=== PATIENT | male | born 1935 | race Caucasian/White ===

== ENCOUNTER 2017-07-15 16:58 | Observation (INO) | payer OTHER, MEDICARE, BC ==
[~2017-07-15] VITALS: Ht 172.7 cm; Wt 68.7 kg
[~2017-07-15 16:58] MED LIST: ASPI81CH PO; Calcium + Vita1 EACH PO; ESOM20 PO; FISH OIL 1,0001 EAC1 PO; LISI20 PO; NALT50 PO; THERAPEUTIC-M1 EAC3 PO
[2017-07-15 18:32] LABS: BASOPHILS ABSOLUTE AUTO 0.04 K/mm3 (0.00-0.23); BASOPHILS PERCENT AUTO 1 % (0-2); EOSINOPHILS ABSOLUTE AUTO 0.29 K/mm3 (0.00-0.68); EOSINOPHILS PERCENT AUTO 5 % (0-6); Hematocrit 35.3 % (37.0-53.0); Hemoglobin 12.2 g/dL (13.5-17.5); IMMATURE GRAN ABSOLUTE AUTO 0.03 K/mm3 (0.00-0.10); IMMATURE GRAN PERCENT AUTO 1 % (0-1); LYMPHOCYTES ABSOLUTE AUTO 1.65 K/mm3 (0.84-5.20); LYMPHOCYTES PERCENT AUTO 30 % (21-46); MONOCYTES PERCENT AUTO 5 % (4-13); Mean Corpuscular HGB 33.2 pg (26.0-34.0); Mean Corpuscular HGB Conc 34.6 g/dL (31.5-36.5); Mean Corpuscular Volume 96 fL (80-100); NEUTROPHILS ABSOLUTE AUTO 3.25 K/mm3 (1.96-9.15); NEUTROPHILS PERCENT AUTO 59 % (41-73); RDW Coefficient Variation 13.7 % (11.7-14.2); RDW Standard Deviation 48.7 fL (35.1-46.3); Red Blood Cell Count 3.68 M/mm3 (4.30-5.90); White Blood Cell Count 5.56 K/mm3 (4.00-11.30)
[2017-07-15 18:33] LABS: Mean Platelet Volume 9.7 fL (9.1-12.4); Platelet Count 108 K/mm3 (150-400)
[2017-07-15 18:47] LABS: Bun/Creatinine Ratio 21.6 (12.0-20.0); Calcium, Blood 8.5 mg/dL (8.5-10.1); Creatinine, Blood 1.25 mg/dL (0.60-1.20); Potassium, Blood 3.5 mmol/L (3.5-5.5)
[2017-07-15] MEDS ORDERED: Gaviscon Foamt1 EACH PO (20:24)
[2017-07-15] MEDS ORDERED: TORSEMIDE PO ×2 (20:30→20:31)
[2017-07-15] MEDS ORDERED: ACET500 PO (20:32)
[2017-07-15] MEDS ORDERED: DOCU100 PO (20:33)
[2017-07-16 04:53] LABS: Hematocrit 32.6 % (37.0-53.0); Hemoglobin 11.3 g/dL (13.5-17.5); Mean Corpuscular HGB 32.9 pg (26.0-34.0); Mean Corpuscular HGB Conc 34.7 g/dL (31.5-36.5); Mean Corpuscular Volume 95 fL (80-100); Mean Platelet Volume 9.4 fL (9.1-12.4); Platelet Count 112 K/mm3 (150-400); RDW Standard Deviation 48.5 fL (35.1-46.3); Red Blood Cell Count 3.43 M/mm3 (4.30-5.90)
[2017-07-16 05:20] LABS: Anion Gap 5 mmol/L (6-16); Blood Urea Nitrogen 28 mg/dL (8-24); Bun/Creatinine Ratio 24.6 (12.0-20.0); CO2, Blood 33 mmol/L (21-32); Chloride, Blood 101 mmol/L (98-108); Creatinine, Blood 1.14 mg/dL (0.60-1.20); Glomerular Filtration Rate >60 (60-); Glucose, Blood 110 mg/dL (70-99); Potassium, Blood 3.8 mmol/L (3.5-5.5); Sodium, Blood 139 mmol/L (136-145)
[2017-07-17 05:33] LABS: Anion Gap 5 mmol/L (6-16); Blood Urea Nitrogen 28 mg/dL (8-24); CO2, Blood 34 mmol/L (21-32); Calcium, Blood 8.3 mg/dL (8.5-10.1); Chloride, Blood 99 mmol/L (98-108); Creatinine, Blood 1.22 mg/dL (0.60-1.20); Glomerular Filtration Rate >60 (60-); Glucose, Blood 106 mg/dL (70-99); Potassium, Blood 3.8 mmol/L (3.5-5.5); Sodium, Blood 138 mmol/L (136-145)
[2017-07-17] MEDS ORDERED: LIDOCAINE1 EACH TOP (12:55)
[2017-07-17] MEDS ORDERED: OXYB5 PO (12:55)
[2017-07-17] MEDS ORDERED: GAVILAX17 GM PO (12:56)
[2017-07-17] MEDS ORDERED: TRAM50 PO (12:56)
== END 2017-07-17 17:02 | disposition home health service (06) ==
LOC: ER 16:58 → MEDS 16:59 → ENPENDDIS 07-17 10:00 → MEDS 07-17 17:02
PROVIDERS: Emergency Medicine; Internal Medicine
DX: S32.592A Other specified fracture of left pubis, initial encounter for closed fracture (principal); D69.6 Thrombocytopenia, unspecified; I25.10 Atherosclerotic heart disease of native coronary artery without angina pectoris; I13.0 Hypertensive heart and chronic kidney disease with heart failure and stage 1 through stage 4 chronic kidney disease, or unspecified chronic kidney disease; I50.32 Chronic diastolic (congestive) heart failure; N18.3 Chronic kidney disease, stage 3 (moderate); D63.1 Anemia in chronic kidney disease; G47.33 Obstructive sleep apnea (adult) (pediatric); M19.90 Unspecified osteoarthritis, unspecified site; G31.84 Mild cognitive impairment of uncertain or unknown etiology; M50.30 Other cervical disc degeneration, unspecified cervical region; M47.896 Other spondylosis, lumbar region; Z79.899 Other long term (current) drug therapy; Z95.5 Presence of coronary angioplasty implant and graft; Z88.8 Allergy status to other drugs, medicaments and biological substances; Z79.82 Long term (current) use of aspirin; Z95.1 Presence of aortocoronary bypass graft; Z99.89 Dependence on other enabling machines and devices; Y93.89 Activity, other specified; V03.90XA Pedestrian on foot injured in collision with car, pick-up truck or van, unspecified whether traffic or nontraffic accident, initial encounter
CPT/HCPCS: 36415; 51702; 72125; 73502; 80048; 85025; 85027; 94660; 94762; 96372; 96374; 96376; 97116; 97162; 97166; 97530; 97535; 99285; G0378; G8978; G8979; G8987; G8988; J1650; J3010

== ENCOUNTER → 2020-01-26 | Outpatient (CLI) | payer MEDICARE, BC ==
[~2020-01-26] MED LIST changes: +ACET500 PO; +Citroma296 ML PO; +DOCU100 PO; +GAVILAX17 GM PO; +Gaviscon Foamt1 EACH PO; +ISOMON20 PO; +LIDOCAINE1 EACH TOP; +METO25ER PO; +OXYB5 PO; +PANT40 PO; +POTCHL20ER PO; +PSYSENPA PO; +TAMS.4ER PO; +TORSE20 PO; +TORSEMIDE PO; +TRAM50 PO; +VITAMIN D31000 UNI1 PO
[2020-01-26 14:40] LABS: BASOPHILS ABSOLUTE AUTO 0.04 K/mm3 (0.00-0.23); BASOPHILS PERCENT AUTO 1 % (0-2); EOSINOPHILS ABSOLUTE AUTO 0.28 K/mm3 (0.00-0.68); EOSINOPHILS PERCENT AUTO 6 % (0-6); Hematocrit 35.2 % (37.0-53.0); Hemoglobin 11.9 g/dL (13.5-17.5); IMMATURE GRAN ABSOLUTE AUTO 0.02 K/mm3 (0.00-0.10); IMMATURE GRAN PERCENT AUTO 0 % (0-1); LYMPHOCYTES ABSOLUTE AUTO 1.43 K/mm3 (0.84-5.20); LYMPHOCYTES PERCENT AUTO 30 % (21-46); MONOCYTES ABSOLUTE AUTO 0.46 K/mm3 (0.16-1.47); MONOCYTES PERCENT AUTO 10 % (4-13); Mean Corpuscular HGB 31.9 pg (26.0-34.0); Mean Corpuscular HGB Conc 33.8 g/dL (31.5-36.5); Mean Corpuscular Volume 94 fL (80-100); NEUTROPHILS ABSOLUTE AUTO 2.59 K/mm3 (1.96-9.15); NEUTROPHILS PERCENT AUTO 54 % (41-73); Platelet Count 137 K/mm3 (150-400); RDW Coefficient Variation 15.2 % (11.7-14.2); Red Blood Cell Count 3.73 M/mm3 (4.30-5.90); White Blood Cell Count 4.82 K/mm3 (4.00-11.30)
[2020-01-26 14:55] LABS: Albumin, Blood 3.6 g/dL (3.4-5.0); Albumin/Globulin Ratio 0.9 (0.8-1.8); Bilirubin, Total 0.3 mg/dL (0.1-1.0); Bun/Creatinine Ratio 17.9 (12.0-20.0); Calcium, Blood 8.5 mg/dL (8.5-10.1); Creatinine, Blood 1.45 mg/dL (0.60-1.20); Globulin, Blood 3.9 g/dL (2.2-4.0); Potassium, Blood 3.8 mmol/L (3.5-5.5); Total Protein, Blood 7.5 g/dL (6.4-8.2); Troponin I 0.021 ng/mL (0.000-0.040)
== END | disposition home or self-care (01) ==
LOC: OLS 14:36 → LAB SHORT 14:36
PROVIDERS: Physician Assistant
DX: R07.9 Chest pain, unspecified (principal); R10.9 Unspecified abdominal pain
CPT/HCPCS: 80053; 84484; 85025

== ENCOUNTER 2020-01-30 12:32 | Emergency (ER) | payer MEDICARE, BC ==
[~2020-01-30] VITALS: Ht 172.7 cm; Wt 81.2 kg
[~2020-01-30 12:32] MED LIST changes: -Citroma296 ML PO; -ISOMON20 PO; -METO25ER PO; -PANT40 PO; -POTCHL20ER PO; -PSYSENPA PO; -TAMS.4ER PO; -TORSE20 PO; -VITAMIN D31000 UNI1 PO
[2020-01-30] MEDS ORDERED: Citroma296 ML PO (14:00)
[2020-01-30] MEDS ORDERED: PSYSENPA PO (14:00)
[2020-01-31] MEDS ORDERED: ISOMON20 PO (00:05)
[2020-01-31] MEDS ORDERED: OXYB5 PO (00:06)
[2020-01-31] MEDS ORDERED: POTCHL20ER PO (00:06)
[2020-01-31] MEDS ORDERED: METO25ER PO (00:06)
[2020-01-31] MEDS ORDERED: TAMS.4ER PO (00:07)
[2020-01-31] MEDS ORDERED: TORSE20 PO (00:08)
[2020-01-31] MEDS ORDERED: VITAMIN D31000 UNI1 PO (00:09)
== END 2020-01-30 15:35 | disposition home or self-care (01) ==
LOC: ER 12:32
DX: K59.00 Constipation, unspecified (principal); Z79.82 Long term (current) use of aspirin; Z79.899 Other long term (current) drug therapy
CPT/HCPCS: 74176; 96374; 96375; 99284-25; J2405; J3010

== ENCOUNTER 2020-01-30 20:03 | Inpatient (IN) | payer MEDICARE, BC ==
[~2020-01-30] VITALS: Ht 172.7 cm; Wt 77.3 kg
[~2020-01-30 20:03] MED LIST changes: +Citroma296 ML PO; +PSYSENPA PO
[2020-01-30 20:55] LABS: BASOPHILS ABSOLUTE AUTO 0.05 K/mm3 (0.00-0.23); BASOPHILS PERCENT AUTO 1 % (0-2); EOSINOPHILS ABSOLUTE AUTO 0.16 K/mm3 (0.00-0.68); EOSINOPHILS PERCENT AUTO 3 % (0-6); Hematocrit 33.6 % (37.0-53.0); Hemoglobin 10.8 g/dL (13.5-17.5); IMMATURE GRAN ABSOLUTE AUTO 0.05 K/mm3 (0.00-0.10); IMMATURE GRAN PERCENT AUTO 1 % (0-1); LYMPHOCYTES ABSOLUTE AUTO 1.55 K/mm3 (0.84-5.20); LYMPHOCYTES PERCENT AUTO 28 % (21-46); MONOCYTES ABSOLUTE AUTO 0.52 K/mm3 (0.16-1.47); MONOCYTES PERCENT AUTO 9 % (4-13); Mean Corpuscular HGB 31.1 pg (26.0-34.0); Mean Corpuscular HGB Conc 32.1 g/dL (31.5-36.5); Mean Corpuscular Volume 97 fL (80-100); Mean Platelet Volume 9.9 fL (9.1-12.4); NEUTROPHILS ABSOLUTE AUTO 3.22 K/mm3 (1.96-9.15); NEUTROPHILS PERCENT AUTO 58 % (41-73); Platelet Count 149 K/mm3 (150-400); RDW Coefficient Variation 15.4 % (11.7-14.2); RDW Standard Deviation 55.3 fL (35.1-46.3); Red Blood Cell Count 3.47 M/mm3 (4.30-5.90); White Blood Cell Count 5.55 K/mm3 (4.00-11.30)
[2020-01-30 21:13] LABS: Alanine Aminotransfer (ALT/SGP 23 U/L (12-78); Albumin, Blood 2.9 g/dL (3.4-5.0); Albumin/Globulin Ratio 0.7 (0.8-1.8); Alk Phos 56 U/L (50-136); Anion Gap 6 mmol/L (6-16); Aspartate Aminotrans (AST/SGOT 14 U/L (12-37); Bilirubin, Total 0.2 mg/dL (0.1-1.0); Blood Urea Nitrogen 33 mg/dL (8-24); Bun/Creatinine Ratio 31.4 (12.0-20.0); CO2, Blood 24 mmol/L (21-32); Calcium, Blood 8.5 mg/dL (8.5-10.1); Chloride, Blood 109 mmol/L (98-108); Creatinine, Blood 1.05 mg/dL (0.60-1.20); Glomerular Filtration Rate >60 (60-); Glucose, Blood 112 mg/dL (70-99); Potassium, Blood 4.2 mmol/L (3.5-5.5); Sodium, Blood 139 mmol/L (136-145); Total Protein, Blood 6.9 g/dL (6.4-8.2)
[2020-01-31] MEDS ORDERED: ISOMON20 PO (00:05)
[2020-01-31] MEDS ORDERED: METO25ER PO (00:06)
[2020-01-31] MEDS ORDERED: POTCHL20ER PO (00:06)
[2020-01-31] MEDS ORDERED: OXYB5 PO (00:06)
[2020-01-31] MEDS ORDERED: TAMS.4ER PO (00:07)
[2020-01-31] MEDS ORDERED: TORSE20 PO (00:08)
[2020-01-31] MEDS ORDERED: VITAMIN D31000 UNI1 PO (00:09)
[2020-01-31 05:33] LABS: Hematocrit 33.2 % (37.0-53.0); Hemoglobin 10.8 g/dL (13.5-17.5)
[2020-01-31 05:53] LABS: Anion Gap 6 mmol/L (6-16); Blood Urea Nitrogen 30 mg/dL (8-24); Bun/Creatinine Ratio 30.9 (12.0-20.0); CO2, Blood 25 mmol/L (21-32); Calcium, Blood 8.2 mg/dL (8.5-10.1); Chloride, Blood 110 mmol/L (98-108); Creatinine, Blood 0.97 mg/dL (0.60-1.20); Glomerular Filtration Rate >60 (60-); Glucose, Blood 96 mg/dL (70-99); Sodium, Blood 141 mmol/L (136-145)
--- NOTE | 2020-01-31 06:39 | NUR ---
ASSUMPTION OF CARE/ ADMIT ASSESSMENT PT ARRIVED TO THE ICU VIA [facility] TO BED VIA TWO PERSON ASSIST, TOLERATED BUT WEAK. ADMITTED FOR GI BLEED, COFFEE GROUND EMESIS IN THE ER, SCHEDULED FOR EGD TODAY @ 1600. NO C/O OF NAUSEA AT THIS TIME. ABD FIRM, MILDLY DISTENDED, BOWEL TONES HYPERACTIVE. EMESIS BAG PROVIDED. VSS. WILL CONTINUE TO MONITOR.
--- NOTE | 2020-01-31 07:15 | NUR ---
REC'D REPORT FROM CANDIDA CARROLL AND AM NOW ASSUMING CARE OF THIS PT.
[2020-01-31 09:16] LABS: Hematocrit 31.2 % (37.0-53.0)
--- NOTE | 2020-01-31 12:18 | NUR ---
STAFF ASSISTED PT WITH URINAL. PT REPORTS BURNING WITH URINATION.
--- NOTE | 2020-01-31 12:20 | NUR ---
ATTEMPTED TO CALL PT'S TO GIVE ANOTHER UPDATE, BUT THE LINE IS BUSY.
--- NOTE | 2020-01-31 12:30 | NUR ---
PT'S STATUS UNCHANGED. INFORMED PT HIS COVID SWAB WAS NEGATIVE. REMINDED HIM THAT HIS EGD WOULD STILL BE AT 1600.
--- NOTE | 2020-01-31 12:58 | NUR ---
PT UPDATE: PT ASKING FOR FOOD/DRINK AT THIS TIME. PT REMINDED HE WAS NPO FOR PENDING EGD.
--- NOTE | 2020-01-31 14:45 | NUR ---
PT TAKEN TO DAY SURGERY FOR EGD.
--- NOTE | 2020-01-31 14:57 | NUR ---
Patient confirms NPO status and agrees with scheduled surgery. Lungs clear T/O to Auscultation. History, Chart, Medications and Allergies reviewed before start of procedure.
--- NOTE | 2020-01-31 14:57 | NUR ---
01/31/20 1457 NEETA ZENG History, Chart, Medications and Allergies reviewed before start of procedure. 3-LEAD EKG REVIEWED WITH PHYSICIAN PRIOR TO START OF PROCEDURE. O2 VIA N/C INTACT THROUGHOUT SEDATION/PROCEDURE. MONITOR INTACT WITH CONTINUOUS PULSE OXIMETRY AND INTERMITTENT BP. MAC WITH DR. SESAY.
--- NOTE | 2020-01-31 15:16 | NUR ---
REC'D REPORT OF EGD FROM CANDIDA TANG.
[2020-01-31 15:56] LABS: Hematocrit 30.6 % (37.0-53.0); Hemoglobin 9.9 g/dL (13.5-17.5)
--- NOTE | 2020-01-31 16:54 | NUR ---
DR GARCIA IN ASSESS PT. UPDATED WITH PT'S CURRENT STATUS. PT CHANGED TO MEDICAL STATUS, NO TELEMETRY.
--- NOTE | 2020-01-31 19:00 | NUR ---
SHIFT SUMMARY: PT WENT FOR EGD LATE THIS AFTERNOON. PT TNX'D TO BED WITH UNSTEADY GAIT WITH 1-2 PERSON ASSIST TO BED. SINCE RETURN PT HAS BEEN BELCHING/BURPING AND SPITTING UP MUCOUSY/YELLOW OUTPUT. PT DENIES ANY NAUSEA AND ATE 100% OF HIS DINNER. 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 PT WAS GIVEN COLACE AND MOM THIS SHIFT FOR CONSTIPATION GOING ON FOR A WEEK PER GALLO NEWELL. PT WAS INCONTINENT OF A LARGE, LOOSE, DARK BROWN STOOL. PT CLEANED UP, LINENS/GOWN CHANGED.
--- NOTE | 2020-01-31 19:36 | NUR ---
REPORTED OFF TO CANDIDA CORBETT WHOM IS NOW ASSUMING CARE OF THIS PT.
--- NOTE | 2020-01-31 19:57 | NUR ---
PATIENT HAS BEEN COUGHING, BELCHING AND THEN SPITTING UP WHAT APPEARS TO BE A SMALL AMOUNT OF EMESIS. PATIENT THEN HAD 600+CC OF WATERY EMESIS. PATIENT'S LUNGS ARE CLEAR THROUGH OUT WITH DIMINISHED BS IN THE UPPER LOBES. ALERT TO SELF, FOLLOWS DIRECTIONS, AND ASKS APPROPRIATE QUESTIONS. WHILE WRITTING THIS NOTE PATIENT WAS HELPED TO [facility] WHERE HE BEGAN VOMITING AND HAD A SMALL AMOUNT OF LOOSE DARK STOOL. HE IS NOW BACK IN [facility] WITH AN EMISIS BAG. CALL LIGHT IN REACH.
--- NOTE | 2020-01-31 21:05 | NUR ---
CALL OUT TO MARYANN MATA PT CONTINUES TO VOMIT UP COPIOUS AMOUNTS OF YELLOW BILE. ORDERS TO PLACE NG TUBE. MEDICATED PT WITH ZOFRAN AND PREPARED FOR NG TUBE INSERTION. HOWEVER, PT STATED HE HAD CARTILAGE SURGERY DONE IN HIS NOSE AND CANNOT TOLERATE ANYTHING IN HIS NOSE. THEREFORE, UNSUCCESSFUL PLACEMENT OF NG. HOWEVER, ZOFRAN APPEARS EFFECTIVE AT THIS TIME.
[2020-01-31 22:47] LABS: Hematocrit 30.4 % (37.0-53.0)
--- NOTE | 2020-01-31 23:10 | NUR ---
PATIENT HAS BEEN SLEEPING FOR THE PAST 1.5 HOURS WITHOUT FURTHER NAUSEA OR VOMITING. CALL LIGHT IN REACH WITH EMESIS BAG AT HAND.
--- NOTE | 2020-02-01 04:08 | NUR ---
PATIENT CONTINUES TO SLEEP, WAKES TO VERBAL STIMULI, DENIES DISCOMFORT AND FALLS BACK TO SLEEP QUICKLY. nO COMPLAINTS OF PAIN OR NAUSEA. CALL LIGHT AND EMESIS BAG ARE WITHIN REACH.
--- NOTE | 2020-02-01 09:10 | NUR ---
ASSUMED CARE: REPORT RECEIVED FROM CHELLE Merino RN. ASSUMED CARE OF THIS PT AT APPROX 0700. ON ASSESSMENT, THE PT IS RESTING QUIETLY. HE AWAKENS EASILY & IS ALERT/ ORIENTED AT THAT TIME. HE HAS MILD C/O BACK PAIN THAT IS RESOLVED W/ REPOSITIONING. LS ARE DIM IN BASES, PT ON RA W/ O2 SATS > 92% ON AVG, OCCASIONAL DESATS TO 89% NOTED W/ APNEIC EPISODES THAT RESOLVE QUICKLY. NO HEART MONITOR IN USE PT IS MEDICAL STATUS W/ NO TELE. PT HAS NO GI COMPLAINTS THIS MORNING & DENIES ANY NAUSEA. HE IS TOLERATING PO INTAKE WELL. HE IS VOIDING USING URINAL W/O DIFFICULTY. SKIN OVERALL CDI. WILL CONTINUE TO MONITOR & UPDATE NEEDED.
[2020-02-01] MEDS ORDERED: PANT40 PO (12:55)
--- NOTE | 2020-02-01 14:29 | NUR ---
DISCHARGE DISCHARGE INSTRUCTIONS PROVIDED TO PT AND PT'S NEIGHBOR OSIRIS, WHO IS HERE TO FIREARMS INSTRUCTOR PT. VERBALIZATION OF UNDERSTANDING OF INSTRUCTIONS GIVEN FROM PT AND OSIRIS. WRITTEN DISCHARGE INSTRUCTIONS PROVIDED TO PT. PT OUT THE DOOR VIA WHEELCHAIR WITH COMPOSITION TILE LAYER AT 1428.
--- NOTE | 2020-02-01 14:45 | NUR ---
DR GARCIA / DISCHARGE TO HOME: PROVIDER HAS BEEN AT BEDSIDE TO CHANDAN PT. ORDERS PLACED FOR PT TO D/C HOME H&H REMAINS STABLE & THE PT HAS BEEN HAVING BMs. NEW MEDICATION OF PANTOPRAZOLE HAS BEEN CALLED TO [facility] IN [place], PER PT REQUEST. PIV & ALL MONITORS HAVE BEEN REMOVED. PT's CLOTHING IS SOILED & HE HAS BEEN PLACED INTO PAPER SCRUBS FOR TRANSPORT HOME. HIS NEIGHBOR, OSIRIS, HAS BEEN CONTACTED AT THE PT's REQUEST & HAS COME TO PICK HIM UP. D/C EDUCATION HAS BEEN COMPLETED BY ESTEFANY LEVINE RN, & THE PT HAS BEEN TAKEN OUT OF UNIT AT 1428.
== END 2020-02-01 14:28 | disposition home or self-care (01) | DRG 381 ==
LOC: ER 20:03 → ERHOLD 20:04 → ICUE 20:04
PROVIDERS: Internal Medicine Gastroenterology; Physician Assistant; ADMIT Internal Medicine
PROC: 0DJ08ZZ Inspection of Upper Intestinal Tract, Via Natural or Artificial Opening Endoscopic (ICD-10-PCS; principal; 2020-01-31 14:30)
DX: K22.11 Ulcer of esophagus with bleeding (principal); I50.22 Chronic systolic (congestive) heart failure; Z79.82 Long term (current) use of aspirin; I25.10 Atherosclerotic heart disease of native coronary artery without angina pectoris; G47.33 Obstructive sleep apnea (adult) (pediatric); Z87.891 Personal history of nicotine dependence; Z95.1 Presence of aortocoronary bypass graft; K44.9 Diaphragmatic hernia without obstruction or gangrene; N18.30 Chronic kidney disease, stage 3 unspecified; I12.9 Hypertensive chronic kidney disease with stage 1 through stage 4 chronic kidney disease, or unspecified chronic kidney disease
CPT/HCPCS: 36415; 80048; 80053; 83690; 85014; 85018; 85025; 96374; 96375; 99285-25; A9270; A9270-GY; C9113; J2370; J2405; J2704; J7120; U0004

== ENCOUNTER 2020-06-29 19:19 | Emergency (ER) | payer OTHER, MEDICARE, BC ==
[~2020-06-29] VITALS: Ht 185.4 cm; Wt 83.9 kg
[~2020-06-29 19:19] MED LIST changes: +ISOMON20 PO; +METO25ER PO; +PANT40 PO; +POTCHL20ER PO; +TAMS.4ER PO; +TORSE20 PO; +VITAMIN D31000 UNI1 PO
== END 2020-06-29 22:15 | disposition home or self-care (01) ==
LOC: ER 19:19
DX: S01.81XA Laceration without foreign body of other part of head, initial encounter (principal); I11.0 Hypertensive heart disease with heart failure; I25.10 Atherosclerotic heart disease of native coronary artery without angina pectoris; I50.32 Chronic diastolic (congestive) heart failure; Z91.81 History of falling; Z87.891 Personal history of nicotine dependence; Z88.8 Allergy status to other drugs, medicaments and biological substances; W01.10XA Fall on same level from slipping, tripping and stumbling with subsequent striking against unspecified object, initial encounter
CPT/HCPCS: 12015; 36415; 70450; 72125; 99284-25

== ENCOUNTER 2020-10-20 11:00 | Emergency (ER) | payer MEDICARE, BC ==
[~2020-10-20] VITALS: Ht 172.7 cm; Wt 72.6 kg
[2020-10-20] MEDS ORDERED: TRAM50 PO (11:27)
== END 2020-10-20 15:36 | disposition home or self-care (01) ==
LOC: ER 11:00
DX: S09.90XA Unspecified injury of head, initial encounter (principal); S41.112A Laceration without foreign body of left upper arm, initial encounter; S00.212A Abrasion of left eyelid and periocular area, initial encounter; S00.81XA Abrasion of other part of head, initial encounter; Z23 Encounter for immunization; I25.10 Atherosclerotic heart disease of native coronary artery without angina pectoris; I13.0 Hypertensive heart and chronic kidney disease with heart failure and stage 1 through stage 4 chronic kidney disease, or unspecified chronic kidney disease; I50.32 Chronic diastolic (congestive) heart failure; N18.30 Chronic kidney disease, stage 3 unspecified; G47.33 Obstructive sleep apnea (adult) (pediatric); Z88.6 Allergy status to analgesic agent; Z79.899 Other long term (current) drug therapy; Z87.891 Personal history of nicotine dependence; Z95.1 Presence of aortocoronary bypass graft; Z95.5 Presence of coronary angioplasty implant and graft; W01.10XA Fall on same level from slipping, tripping and stumbling with subsequent striking against unspecified object, initial encounter; Y93.01 Activity, walking, marching and hiking
CPT/HCPCS: 70450; 72125; 90471; 90714; 99284-25; A9270

== ENCOUNTER 2021-08-14 10:19 | Emergency (ER) | payer MEDICARE, BC ==
[~2021-08-14] VITALS: Ht 170.2 cm; Wt 74.8 kg
[2021-08-14 11:09] LABS: BASOPHILS ABSOLUTE AUTO 0.05 K/mm3 (0.00-0.23); BASOPHILS PERCENT AUTO 1 % (0-2); EOSINOPHILS ABSOLUTE AUTO 0.32 K/mm3 (0.00-0.68); EOSINOPHILS PERCENT AUTO 5 % (0-6); Hematocrit 34.6 % (37.0-53.0); Hemoglobin 11.5 g/dL (13.5-17.5); IMMATURE GRAN ABSOLUTE AUTO 0.02 K/mm3 (0.00-0.10); IMMATURE GRAN PERCENT AUTO 0 % (0-1); LYMPHOCYTES ABSOLUTE AUTO 3.34 K/mm3 (0.84-5.20); LYMPHOCYTES PERCENT AUTO 48 % (21-46); MONOCYTES PERCENT AUTO 9 % (4-13); Mean Corpuscular HGB 29.9 pg (26.0-34.0); Mean Corpuscular HGB Conc 33.2 g/dL (31.5-36.5); Mean Corpuscular Volume 90 fL (80-100); Mean Platelet Volume 10.2 fL (9.1-12.4); NEUTROPHILS ABSOLUTE AUTO 2.57 K/mm3 (1.96-9.15); NEUTROPHILS PERCENT AUTO 37 % (41-73); Platelet Count 148 K/mm3 (150-400); RDW Coefficient Variation 14.3 % (11.7-14.2); RDW Standard Deviation 46.9 fL (35.1-46.3); Red Blood Cell Count 3.85 M/mm3 (4.30-5.90)
[2021-08-14 11:31] LABS: Albumin, Blood 3.3 g/dL (3.4-5.0); Albumin/Globulin Ratio 0.8 (0.8-1.8); Bilirubin, Total 0.4 mg/dL (0.1-1.0); Bun/Creatinine Ratio 33.6 (12.0-20.0); Calcium, Blood 8.1 mg/dL (8.5-10.1); Creatinine, Blood 1.22 mg/dL (0.60-1.20); Potassium, Blood 3.6 mmol/L (3.5-5.5); Total Protein, Blood 7.3 g/dL (6.4-8.2)
[2021-08-14] MEDS ORDERED: Norco 5-325 Ta1 EACH PO (12:25)
[2021-08-14] MEDS ORDERED: NITR.4SL SL (12:25)
[2021-08-14] MEDS ORDERED: ONDA4 PO (12:26)
[2021-08-14] MEDS ORDERED: IMODIUM A-D2 M1 PO (12:26)
[2021-08-14] MEDS ORDERED: MYLANTA MAXIMUM10 ML PO (12:27)
[2021-08-14 12:50] LABS: SARS-Cov-2 (COVID-19) PCR, MMC NEGATIVE (NEGATIVE)
[2021-08-14] MEDS ORDERED: TORSE20 PO (13:19)
== END 2021-08-14 14:17 | disposition home or self-care (01) ==
LOC: ER 10:19
PROVIDERS: Student in an Organized Health Care Education/Training Program
DX: I13.0 Hypertensive heart and chronic kidney disease with heart failure and stage 1 through stage 4 chronic kidney disease, or unspecified chronic kidney disease (principal); N18.30 Chronic kidney disease, stage 3 unspecified; I50.32 Chronic diastolic (congestive) heart failure; G47.33 Obstructive sleep apnea (adult) (pediatric); I25.10 Atherosclerotic heart disease of native coronary artery without angina pectoris; N40.0 Benign prostatic hyperplasia without lower urinary tract symptoms; Z88.6 Allergy status to analgesic agent; Z79.899 Other long term (current) drug therapy; Z95.1 Presence of aortocoronary bypass graft; Z87.891 Personal history of nicotine dependence; Z20.822 Contact with and (suspected) exposure to COVID-19
CPT/HCPCS: 71046; 80053; 83880; 84484; 85025; 93005; 93010; 94640; 94664; J1940; J3475; U0004

== ENCOUNTER 2023-01-03 15:08 | Inpatient (IN) | payer MEDICARE ==
[~2023-01-03] VITALS: Ht 172.7 cm; Wt 87.6 kg
[~2023-01-03 15:08] MED LIST changes: +IMODIUM A-D2 M1 PO; +MYLANTA MAXIMUM10 ML PO; +NITR.4SL SL; +Norco 5-325 Ta1 EACH PO; +ONDA4 PO; +ONDA4ODT MM
[2023-01-03 16:06] LABS: BASOPHILS ABSOLUTE AUTO 0.04 K/mm3 (0.00-0.23); BASOPHILS PERCENT AUTO 1 % (0-2); EOSINOPHILS ABSOLUTE AUTO 0.21 K/mm3 (0.00-0.68); EOSINOPHILS PERCENT AUTO 6 % (0-6); Hematocrit 30.2 % (37.0-53.0); Hemoglobin 9.9 g/dL (13.5-17.5); IMMATURE GRAN ABSOLUTE AUTO 0.02 K/mm3 (0.00-0.10); IMMATURE GRAN PERCENT AUTO 1 % (0-1); LYMPHOCYTES ABSOLUTE AUTO 1.55 K/mm3 (0.84-5.20); LYMPHOCYTES PERCENT AUTO 42 % (21-46); MONOCYTES ABSOLUTE AUTO 0.32 K/mm3 (0.16-1.47); MONOCYTES PERCENT AUTO 9 % (4-13); Mean Corpuscular HGB 30.4 pg (26.0-34.0); Mean Corpuscular HGB Conc 32.8 g/dL (31.5-36.5); Mean Corpuscular Volume 93 fL (80-100); NEUTROPHILS ABSOLUTE AUTO 1.52 K/mm3 (1.96-9.15); NEUTROPHILS PERCENT AUTO 42 % (41-73); Platelet Count 122 K/mm3 (150-400); RDW Coefficient Variation 14.7 % (11.7-14.2); RDW Standard Deviation 50.3 fL (35.1-46.3); Red Blood Cell Count 3.26 M/mm3 (4.30-5.90); White Blood Cell Count 3.66 K/mm3 (4.00-11.30)
[2023-01-03 16:27] LABS: Albumin, Blood 2.7 g/dL (3.4-5.0); Albumin/Globulin Ratio 0.8 (0.8-1.8); Bilirubin, Total 0.3 mg/dL (0.1-1.0); Bun/Creatinine Ratio 21.3 (12.0-20.0); Calcium, Blood 7.1 mg/dL (8.5-10.1); Creatinine, Blood 1.5 mg/dL (0.60-1.20); Globulin, Blood 3.4 g/dL (2.2-4.0); Potassium, Blood 3.8 mmol/L (3.5-5.5); Total Protein, Blood 6.1 g/dL (6.4-8.2)
[2023-01-03 21:27] VITALS: BP 134/53
[2023-01-03 23:25] LABS: Magnesium, Blood 2.5 mg/dL (1.6-2.4); Thyroid Stimulating Hormone 5.74 uIU/mL (0.360-4.800)
[2023-01-04] VITALS (7 sets, daily range): BP systolic 108–131; BP diastolic 50–70
[2023-01-04 00:27] LABS: Influenza A, PCR NEGATIVE (NEGATIVE); Influenza B, PCR NEGATIVE (NEGATIVE); Resp Syncytial Virus, PCR NEGATIVE (NEGATIVE); SARS-Cov-2 (COVID-19) PCR, MMC NEGATIVE (NEGATIVE)
[2023-01-04] MEDS ORDERED: Lisinopril2.5 MG PO (02:31)
[2023-01-04] MEDS ORDERED: POTCHL20ER PO (02:32)
[2023-01-04] MEDS ORDERED: ISOMON20 PO (02:33)
[2023-01-04 02:55] LABS: Hemoglobin 11.2 g/dL (13.5-17.5); Mean Corpuscular HGB 30.6 pg (26.0-34.0); Mean Corpuscular HGB Conc 32.9 g/dL (31.5-36.5); Mean Corpuscular Volume 93 fL (80-100); Mean Platelet Volume 9.7 fL (9.1-12.4); Platelet Count 124 K/mm3 (150-400); RDW Coefficient Variation 14.6 % (11.7-14.2); Red Blood Cell Count 3.66 M/mm3 (4.30-5.90); White Blood Cell Count 7.23 K/mm3 (4.00-11.30)
[2023-01-04 03:30] LABS: Calcium, Blood 8.1 mg/dL (8.5-10.1); Creatinine, Blood 1.61 mg/dL (0.60-1.20); Potassium, Blood 4.9 mmol/L (3.5-5.5)
--- NOTE | 2023-01-04 06:43 | NUR ---
NOC SHIFT STATUS PT ARRIVED TO [facility] @ 2024, SLIDE TRANSFER TO HOSPITAL BED. PAIN IN R HIP, PRNS GIVEN WITH SOME RELIEF. NPO FOR POSSIBLE INTERVENTION TODAY. ORTHO CONSULT CALLED IN. RAPID PCR SENT AND NEGATIVE. HEAD CT NEGATIVE FOR ACUTE PROCESS. PT ORIENTED X4, SIGNIFICANTLY [place]. R EYE PROSTHESIS AND CRUSTING TO EYELID NOTED. ON 2-3 NC, REFUSING CPAP BUT HX OF ABHI. NS @ 75. DENIES CP OR DISCOMFORT. CONDOM CATH PLACED, PT CONTINENT BUT UNABLE TO AMBULATED. BEDREST OVERNIGHT. WILL PASS ON TO DAY RN
--- NOTE | 2023-01-04 08:00 | NUR ---
INITIAL ASSESSMENT: Patient is resting with eyes closed, resp e/u. He wakes easily with verbal stimuli. He is very [place] and only has his right hearing aid. He is oriented x4. He reports 6/10 right hip pain due to his hip fx. Patient is repositioned at this time. HR irreg, He appears to be in SR with a 1st degree block and PACs from the EKG. His rhythm is irregular and a murmur is noted. Blood pressure WNL. LS DIM in the bases, he is on 2l O2 via NC for some ABHI, he is non-compliant with his C-Pap. BT+. PPP. His right foot is externally rotated. He is curently NPO for possible right hip repair. He denies other needs at this time. Call light in reach, bed alarm on for safety.
--- NOTE | 2023-01-04 13:24 | NUR ---
UPDATE: Dr. Corado was here to see the patient, she talked with Cardiology Dr. Harrington to discuss patient surgical risk. Dr. Harrington stated we should not halt surgery for this gentleman. Dr. Weaver called to make sure the Echo is in the chart, call placed to reading room to make sure the ECHO makes it in the chart soon. Patient is C/O increased pain, medication frequency increased. VSS. Patient denies other needs at this time. Call light in reach. Will continue to monitor.
--- NOTE | 2023-01-04 18:29 | NUR ---
SUMMARY: Patient has been alert and oriented x4 T/O the day. He is very hard of hearing and only has a hearing aid in the right ear. He has been C/O 5-09/26 pain T/O the shift, his pain medications were changed this afternoon to norco and dilaudid as needed for break through pain. HR IRREG, he looks to be in a first degree block with PACs, with a murmur noted. He has not had any C/O chest pain or pressure. LS CTA, Biox has been high 90s while he is awake, his saturations dip when he his asleep. He is refusing to wear a C-Pap at this time for ABHI. BT hypoactive and he has had a couple of bouts of vomiting this shift, he was medicated with Zofran once for me this shift. PPP. His right LE is externally rotated. Hospitalist consluted cardiology to clear patient for his procedure tomorrow, refer to Dr. Lawrence note. Dr. Weaver came to see him today and plans to fix his right leg tomorrow around 1230, he will be NPO after midnight. He has not had any other acute changes this shift. Will report to oncoming RN.
[2023-01-05] VITALS (15 sets, daily range): BP systolic 88–143; BP diastolic 55–78
[2023-01-05 04:33] LABS: BASOPHILS ABSOLUTE AUTO 0.08 K/mm3 (0.00-0.23); BASOPHILS PERCENT AUTO 1 % (0-2); EOSINOPHILS ABSOLUTE AUTO 0.62 K/mm3 (0.00-0.68); EOSINOPHILS PERCENT AUTO 11 % (0-6); Hematocrit 33.1 % (37.0-53.0); Hemoglobin 10.7 g/dL (13.5-17.5); IMMATURE GRAN ABSOLUTE AUTO 0.05 K/mm3 (0.00-0.10); IMMATURE GRAN PERCENT AUTO 1 % (0-1); LYMPHOCYTES ABSOLUTE AUTO 1.22 K/mm3 (0.84-5.20); LYMPHOCYTES PERCENT AUTO 21 % (21-46); MONOCYTES ABSOLUTE AUTO 0.65 K/mm3 (0.16-1.47); MONOCYTES PERCENT AUTO 11 % (4-13); Mean Corpuscular HGB 30.3 pg (26.0-34.0); Mean Corpuscular HGB Conc 32.3 g/dL (31.5-36.5); Mean Corpuscular Volume 94 fL (80-100); NEUTROPHILS ABSOLUTE AUTO 3.29 K/mm3 (1.96-9.15); NEUTROPHILS PERCENT AUTO 56 % (41-73); Platelet Count 107 K/mm3 (150-400); RDW Coefficient Variation 14.6 % (11.7-14.2); Red Blood Cell Count 3.53 M/mm3 (4.30-5.90); White Blood Cell Count 5.91 K/mm3 (4.00-11.30)
[2023-01-05 05:00] LABS: Calcium, Blood 7.7 mg/dL (8.5-10.1); Creatinine, Blood 1.16 mg/dL (0.60-1.20); Potassium, Blood 4.5 mmol/L (3.5-5.5)
--- NOTE | 2023-01-05 05:18 | NUR ---
SHIFT SUMMARY PT REMAINS A/O X4. PT ABLE TO ANSWER QUESTIONS APPROPRIATELY AND MAKE NEEDS KNOWN. PT VERY [place] AND ONLY HAS HEARING AID IN RIGHT EAR. PT REMAINS ON 3 L N/C, O2 SATS > 95%. CARDIAC MONITORING REFLECTED TRIFASCICULAR RHYTHM. HR 60s-70s. SBP 120s-140s. PT HAS COMPLAINED OF SIGNIFICANT PAIN AT RIGHT FEMUR FX, MEDICATED PER EMAR. NEUROVASCULAR CHECK PERFORMED, PT HAS FULL SENSATION AND PULSES HEARD WITH DOPPLER. PT ALSO MEDICATED FOR NAUSEA THIS SHIFT. PT ABLE TO USE URINAL WITH ASSISTANCE THIS SHIFT. PLAN FOR PT TO HAVE PROCEDURE TODAY, PT HAS BEEN NPO SINCE MIDNIGHT. WILL CONTINUE TO MONITOR UNTIL CARE IS TRANSITIONED TO DAY SHIFT.
--- NOTE | 2023-01-05 07:13 | NUR ---
Bedside report received. The pt appears to be sleeping soundly, heart rate 66 bpm, Spo2 99% on 2 l/min of oxygen, RR 10. Awakened easily, states painful. Assisted to reposition. He states that it is better.
--- NOTE | 2023-01-05 11:25 | NUR ---
1100 Dr. Vazquez was here to see the patient. Surgery planned for 1230 today.
--- NOTE | 2023-01-05 12:20 | NUR ---
TRANSFERED TO DAY SURGERY VIA BED. PATIENT VERBALIZES NO C/O AT THIS TIME. PATIENT IS LOWER [place] AND ANSWERS QUESTIONS SLOWLY, AND SOMETIMES UNABLE TO ANSWER. ORIENTED TO SELF, SURGERY PLANNED AND TO LOCATION. NO FAMILY AVAILALBE TO BE WITH PATIENT TODAY PER LOGGING ASSISTANT. PATIENT LAYING QUIETLY IN BED AND ONLY SPEAKS IF SPOKEN TO. BIOX 96% ON 2L O2/NC.
--- NOTE | 2023-01-05 13:23 | NUR ---
HEARING AID BROUGHT TO PACU FOR SAFE KEEPING DURING SURGERY. PATIENT DID NOT HAVE DENTURES WITH HIM WHEN HE CAME TO DAY SURGERY. CENTRAL MONITORING TELE REMOVED FOR TRANSPORT TO OR AND SURFACE BOSS NOTIFIED.
--- NOTE | 2023-01-05 17:51 | NUR ---
1630 Pt returned to PCU 11 from PACU. CANDIDA Caballero accompanying him. He is alert, oriented and conversant. No c/o pain nor discomfort. Vital signs stable, wearing oxygen 2 l/min via nasal prongs. Operative site noted with aquacel dressing clean dry and intact in place. Three small red spots noted on buttocks, non blanchable. Bruising and redness around the aquacel dressing were noted unchanged from this morning's assessment. Pt was turned from his back to left side to relieve pressure. Also noted non blachable redness on the right heel. Feet were floated on pillow to relieve pressure on heels. NS restarted at 75 cc/hour per standing orders. Left forearm 20 g IV is WNL.
--- NOTE | 2023-01-05 17:58 | NUR ---
Pt repositioned upright in bed to eat some tomato soup and drink water. He is voiding in the urinal.
[2023-01-06 03:06] VITALS: BP 124/65
--- NOTE | 2023-01-06 04:43 | NUR ---
SHIFT SUMMARY NO ACUTE CHANGES THIS SHIFT. VSS. MENTATION UNCHANGED. FOLLOWS DIRECTIONS BUT SLOW WITH RESPONSES. FORGETFUL, BED ALARM ON. ON L WHILE RESTING. REMAINS PACED. CONDOM CATH REMOVED THIS SHIFT DUE TO TROUBLES WITH LEAKING. EXTERNAL WICKING PAD APPLIED. PT BEING TURNED BY STAFF. OTHERWISE, RESTING THIS SHIFT.
--- NOTE | 2023-01-06 04:46 | NUR ---
SHIFT SUMMARY NO ACUTE CHANGES THIS SHIFT. VSS. MENTATION UNCHANGED, AXO3-4. LIANNE MORAH. REMAINS IN, WHAT REAL ESTATE DEVELOPMENT MANAGER DEEMED, "TRIFASICULAR BLOCK". BP STABLE. PT HAS BEEN ON 2LNC. HAS HAD 2 EPISODES OF NAUSEA/VOMITING THIS SHIFT, MEDS PER EMAR TO APPROPRIATE EFFECT. PT REMAINS IN POSTERIOR HIP PRECAUTIONS. BEING TURNED BY STAFF. LEGS ELEVATED SLIGHTLY PER COMFORT. HEEL PROTECTORS AND MEPILEX ON. OTHERWISE, PT RESTING THIS SHIFT. BED ALARM ON.
[2023-01-06 04:53] LABS: Calcium, Blood 7.5 mg/dL (8.5-10.1); Creatinine, Blood 1.08 mg/dL (0.60-1.20); Potassium, Blood 4.3 mmol/L (3.5-5.5)
[2023-01-06 06:30] LABS: BASOPHILS ABSOLUTE AUTO 0.07 K/mm3 (0.00-0.23); BASOPHILS PERCENT AUTO 1 % (0-2); EOSINOPHILS ABSOLUTE AUTO 0.31 K/mm3 (0.00-0.68); EOSINOPHILS PERCENT AUTO 5 % (0-6); Hematocrit 28.5 % (37.0-53.0); IMMATURE GRAN ABSOLUTE AUTO 0.05 K/mm3 (0.00-0.10); IMMATURE GRAN PERCENT AUTO 1 % (0-1); LYMPHOCYTES ABSOLUTE AUTO 1.05 K/mm3 (0.84-5.20); LYMPHOCYTES PERCENT AUTO 16 % (21-46); MONOCYTES ABSOLUTE AUTO 0.69 K/mm3 (0.16-1.47); MONOCYTES PERCENT AUTO 11 % (4-13); Mean Corpuscular HGB 30.2 pg (26.0-34.0); Mean Corpuscular HGB Conc 31.6 g/dL (31.5-36.5); Mean Corpuscular Volume 96 fL (80-100); Mean Platelet Volume 10.3 fL (9.1-12.4); NEUTROPHILS ABSOLUTE AUTO 4.24 K/mm3 (1.96-9.15); NEUTROPHILS PERCENT AUTO 66 % (41-73); RDW Coefficient Variation 14.6 % (11.7-14.2); RDW Standard Deviation 50.8 fL (35.1-46.3); Red Blood Cell Count 2.98 M/mm3 (4.30-5.90); White Blood Cell Count 6.41 K/mm3 (4.00-11.30)
[2023-01-06 06:36] LABS: Platelet Count 84 K/mm3 (150-400)
[2023-01-06 07:46] VITALS: BP 139/73
[2023-01-06 16:07] VITALS: BP 123/66
--- NOTE | 2023-01-06 17:35 | NUR ---
SHIFT SUMMARY PT IS A&OX4, BUT IS VERY [place] AND IS WEARING A HEARING AID IN HIS RIGHT EAR. PT WORKED W/ PT/OT TODAY AND IS ONLY OKAY FOR A 2P DANGLE AT THE BED. HE STILL IS BEDREST, W/ ORDERS OF A PILLOW/WEDGE BETWEEN HIS LEGS. DRESSING ON RIGHT HIP IS C/D/I. NO SIGNS OF HEMATOMA. THE PT PREFERS TO KEEP THE URINAL AROUND HIS PENIS T/O THE DAY, BUT WE TOOK IT AWAY BECAUSE IT WAS LEAVING SOME [place]. WE PLACED A CONDOM CATH IN RETURN. HE IS SURGICAL STATUS W/ TELE. PAIN AND NAUSEA HAVE BEEN THE ONLY COMPLAINTS. ZOFRAN WAS D/C'D DUE TO QTC OF 0.54. DR. BANG AWARE. FIRE IGNITION RISK HAS BEEN ASSESSED.
[2023-01-06 21:00] VITALS: BP 118/65
[2023-01-07] VITALS (11 sets, daily range): BP systolic 81–136; BP diastolic 48–68
[2023-01-07 03:59] LABS: BASOPHILS ABSOLUTE AUTO 0.06 K/mm3 (0.00-0.23); BASOPHILS PERCENT AUTO 1 % (0-2); EOSINOPHILS ABSOLUTE AUTO 0.47 K/mm3 (0.00-0.68); EOSINOPHILS PERCENT AUTO 7 % (0-6); Hematocrit 25.6 % (37.0-53.0); Hemoglobin 8.5 g/dL (13.5-17.5); IMMATURE GRAN ABSOLUTE AUTO 0.07 K/mm3 (0.00-0.10); IMMATURE GRAN PERCENT AUTO 1 % (0-1); LYMPHOCYTES ABSOLUTE AUTO 1.06 K/mm3 (0.84-5.20); LYMPHOCYTES PERCENT AUTO 17 % (21-46); MONOCYTES ABSOLUTE AUTO 0.61 K/mm3 (0.16-1.47); MONOCYTES PERCENT AUTO 10 % (4-13); Mean Corpuscular HGB 30.4 pg (26.0-34.0); Mean Corpuscular HGB Conc 33.2 g/dL (31.5-36.5); NEUTROPHILS ABSOLUTE AUTO 4.13 K/mm3 (1.96-9.15); NEUTROPHILS PERCENT AUTO 65 % (41-73); Platelet Count 93 K/mm3 (150-400); RDW Coefficient Variation 14.7 % (11.7-14.2); RDW Standard Deviation 49.5 fL (35.1-46.3)
[2023-01-07 04:08] LABS: Mean Corpuscular Volume 91 fL (80-100)
[2023-01-07 04:21] LABS: Bun/Creatinine Ratio 11.7 (12.0-20.0); Calcium, Blood 7.7 mg/dL (8.5-10.1); Creatinine, Blood 1.03 mg/dL (0.60-1.20); Potassium, Blood 4.1 mmol/L (3.5-5.5)
--- NOTE | 2023-01-07 04:49 | NUR ---
shift summary patient is alert and oriented 3-4. perrla. patient is hard of hearing. patient is able to communicate needs. patient reports no pain expect with movement. patient reports no shortness of breath or chest pain/pressure. pateint is surgical status with tele. tele triascicular block 90s. patient has condom cath in place draining with gravity. plan of care is up to date. no acute changes.
--- NOTE | 2023-01-07 11:50 | NUR ---
I CALLED DR. BANG ABOUT SOFT BP'S PT'S BP IS LOW 95/51 (64). SHE WANTS TO BE NOTIFIED IF THE MAP DROPS BELOW 60. A GUIAC OCCULATE STOOL SAMPLE WAS ORDERED BECAUSE OF HBG TRENDING DOWN WELL. NO SIGNS OF BLEEDING AT THIS TIME. THE PT HAS NOT HAS A BOWEL MOVMENT AND WAS STARTED ON STOOL SOFTENERS. PT DISCUSSED WITH CHYRON OPERATOR AND PROVIDER.
--- NOTE | 2023-01-07 13:48 | NUR ---
I CALLED DR. BANG ABOUT HYPOTENSION AGAIN. DR. BANG IS GOING TO MAKE SOME CHANGES TO THE PT'S MEDICATIONS AND SHE WANTS ME TO GIVE A SLOW 500CC BOLUS OVER TWO HOURS. LAST BP 87/51 (61).
--- NOTE | 2023-01-07 17:27 | NUR ---
SHIFT SUMMARY PT IS A&OX4, [place], AND CALLS APPROPRIATELY. HE HAD ONE EPISODE OF N/V AND WAS MEDICATED THIS MORNING WITH 5MG OF COMPAZINE. THE PT WAS GIVEN CLEAR LIQUIDS AT LUNCH DUE TO HIS UPSET STOMACH. HE HAS BEEN ON 1L NC W/ HIS SP02 >90%. ON TELE THE PT IS IN THE TRIFASCICULAR BLOCK PER CARDIOLOGY. BP HAS BEEN SOFT AND HE RECIEVED A SLOW 500CC BOLUS PER DR. BANG. BP IS NOW STABLE. HE WORKED WITH PT TODAY AND WAS ABLE TO STAND A FEW TIMES. PILLOW IS BETWEEN HIS LEGS, Q2 TURN, AND HEELS ARE FLAOTED. FIRE IGNITION RISK HAS BEEN ASSESSED.
--- NOTE | 2023-01-07 18:49 | NUR ---
CALLED DR. BANG ABOUT PT'S HYPOTENSION PT'S BP IS TRENDING BACK DOWN AFTER RECEIVING A 50CC BOLUS THIS EVENING. I ASKED DR. BANG WHAT THE PLAN IS FOR TONIGHT SINCE THE PT'S MAP IS SUSTAINING LESS THAN 65. DR. BANG ORDERED MIDODRINE 5MG Q8 W/ PARAMETERS TO HOLD IF SBP >110.
[2023-01-08] VITALS (7 sets, daily range): BP systolic 95–135; BP diastolic 46–76
[2023-01-08 04:39] LABS: BASOPHILS ABSOLUTE AUTO 0.06 K/mm3 (0.00-0.23); BASOPHILS PERCENT AUTO 1 % (0-2); EOSINOPHILS ABSOLUTE AUTO 0.48 K/mm3 (0.00-0.68); EOSINOPHILS PERCENT AUTO 8 % (0-6); Hematocrit 23.9 % (37.0-53.0); Hemoglobin 7.9 g/dL (13.5-17.5); IMMATURE GRAN ABSOLUTE AUTO 0.09 K/mm3 (0.00-0.10); IMMATURE GRAN PERCENT AUTO 2 % (0-1); LYMPHOCYTES ABSOLUTE AUTO 1.26 K/mm3 (0.84-5.20); LYMPHOCYTES PERCENT AUTO 22 % (21-46); MONOCYTES ABSOLUTE AUTO 0.58 K/mm3 (0.16-1.47); MONOCYTES PERCENT AUTO 10 % (4-13); Mean Corpuscular HGB 30.4 pg (26.0-34.0); Mean Corpuscular HGB Conc 33.1 g/dL (31.5-36.5); Mean Corpuscular Volume 92 fL (80-100); Mean Platelet Volume 10.6 fL (9.1-12.4); NEUTROPHILS ABSOLUTE AUTO 3.33 K/mm3 (1.96-9.15); NEUTROPHILS PERCENT AUTO 57 % (41-73); Platelet Count 98 K/mm3 (150-400); RDW Standard Deviation 50.6 fL (35.1-46.3)
[2023-01-08 04:56] LABS: Bun/Creatinine Ratio 11.3 (12.0-20.0); Calcium, Blood 7.5 mg/dL (8.5-10.1); Creatinine, Blood 1.33 mg/dL (0.60-1.20); Potassium, Blood 3.8 mmol/L (3.5-5.5)
--- NOTE | 2023-01-08 06:54 | NUR ---
SHIFT SUMMARY PT REMAINS A&O X4. VSS; SBP IMPROVING 100'S - 1 TEENS. PT HR 60 - 70'S THROUGHOUT THE NIGHT. RHYTHM REMAINS THE SAME. PT HAD UNEVENTFUL NIGHT. PAIN MEDICATION ADMINISTERED X1 THIS SHIFT, PT OTHERWISE STATES PAIN "IS OKAY" AND DECLINES MEDICATION. POSTERIOR PRECAUTIONS IN PLACE, PT REPOSITIONED Q2 OR PRN. PT REMAINS AFEBRILE. CONTINUES ON 1-2 L VIA NC WHILE ASLEEP. WILL UPDATE ONCOMING RN.
--- NOTE | 2023-01-08 12:26 | NUR ---
I TALKED TO DR. BANG ABOUT THE PT'S BP AND HGB DURING PHYSICIAN ROUNDS, I TALKED TO DR. BANG ABOUT THE PT'S HGB TRENDING DOWN SINCE SURGERY ON 01/05. HGB THIS AM WAS 7.9. I ASKED IF SHE WANTED TO DO A RECHECK THIS EVENING AND SHE SAID NOT AT THIS TIME. PT STILL HAS NO PHYSICAL SIGNS OF BLEEDING AT THIS TIME. MIDODRINE WAS HELD THIS AM TO SEE HOW THE PT TOLERATES HIS BP MEDICATIONS. HIS BP DID GET SOFT. PROVIDER NOTIFIED AND STATED WE WILL MONITOR AT THIS TIME. BP AT 1228 95/73 (80) AND IMPROVING.
[2023-01-08 14:31] LABS: Percent Saturation 8.8 % (20.0-50.0)
--- NOTE | 2023-01-08 17:11 | NUR ---
SHIFT SUMMARY PT IS A&OX4 AND [place]. HE HAD NO ACUTE EVENTS TODAY. ON TELE HE HAS BEEN IN THE TRIFASCICULAR BLOCK W/ HR 50'S-80'S. HE HAS BEEN BETWEEN RA AND 1L NC. I HAVE MEDICATED HIM A FEW TIMES FOR PAIN. THE PT PREFERS TO BE MEDICATED BEFORE GETTING OUT OF BED. HE WORKED WITH P.T. TODAY AND IS NOW ABLE TO TRANSFER FROM THE BED TO CHAIR W/ 1-2P MOD/MAX ASSIST W/ GB & FWW. PT IS VERY PLEASENT AND CALLS APPROPRIATELY.
--- NOTE | 2023-01-08 17:51 | NUR ---
I TOUCHED BASE W/ DR. BANG ABOUT THE PT'S IRON AND TIBC. NO FURTHER ORDERS AT THIS TIME.
--- NOTE | 2023-01-08 20:17 | NUR ---
ASSUMPTION OF CARE THIS RN ASSUMED CARE OF PT AT 1915, REPORT FROM ATTILA TIRADO. PT A&O X4; PT UP IN RECLINER CHAIR WATCHING TV. PT PLEASANT, LAUGHING AND JOKING WITH THIS RN. VSS. PT DENIES CP OR PRESSURE, DENIES DIZZINESS OR LIGHTHEADNESS. DENIES SOB. PT ON 1 L VIA NC PRN OR WHILE ASLEEP. PT STATES PAIN IS 3-4/10,; DECLINES PAIN MEDICATION AT THIS TIME. ATTENDS IN PLACE. FRESH WATER PROVIDER. PT DENIES OTHER NEEDS AT THIS TIME. CALL LIGHT IN REACH
--- NOTE | 2023-01-08 20:21 | NUR ---
UPDATE PT REQUESTING TO GET BACK INTO BED. THIS RN AND BIG DATA LEAD ASSISTED PT BACK TO BED, PT TOLERATED THIS WELL; 2 PERSON MODERATE ASSIST. PT FOLLOWS CUES AND PROMPTING WELL DURING TRANSFER TO BED. PT DENIES PAIN WHILE TRANSFERRING. PT DENIES DIZZINESS, LIGHTHEADNESS, SOB. ALTHOUGH THIS RN NOTES, VERY MILD SOB WITH EXERTION, SPO2 MAINTAINED >96%. PT BOOSTED AND REPOSITIONED IN BED. ATTENDS CHANGED AT THIS TIME. PT DENIES OTHER NEEDS AT THIS TIME. CALL LIGHT IN REACH
[2023-01-09 00:30] VITALS: BP 118/64
[2023-01-09 03:33] VITALS: BP 142/68
[2023-01-09 03:42] LABS: BASOPHILS ABSOLUTE AUTO 0.05 K/mm3 (0.00-0.23); BASOPHILS PERCENT AUTO 1 % (0-2); EOSINOPHILS ABSOLUTE AUTO 0.58 K/mm3 (0.00-0.68); EOSINOPHILS PERCENT AUTO 11 % (0-6); Hematocrit 26.1 % (37.0-53.0); Hemoglobin 8.6 g/dL (13.5-17.5); IMMATURE GRAN ABSOLUTE AUTO 0.12 K/mm3 (0.00-0.10); IMMATURE GRAN PERCENT AUTO 2 % (0-1); LYMPHOCYTES ABSOLUTE AUTO 1.19 K/mm3 (0.84-5.20); LYMPHOCYTES PERCENT AUTO 22 % (21-46); MONOCYTES ABSOLUTE AUTO 0.61 K/mm3 (0.16-1.47); MONOCYTES PERCENT AUTO 11 % (4-13); Mean Corpuscular HGB 30.3 pg (26.0-34.0); Mean Corpuscular Volume 92 fL (80-100); Mean Platelet Volume 10.1 fL (9.1-12.4); NEUTROPHILS ABSOLUTE AUTO 2.99 K/mm3 (1.96-9.15); NEUTROPHILS PERCENT AUTO 54 % (41-73); Platelet Count 116 K/mm3 (150-400); RDW Coefficient Variation 14.7 % (11.7-14.2); RDW Standard Deviation 49.4 fL (35.1-46.3); Red Blood Cell Count 2.84 M/mm3 (4.30-5.90); White Blood Cell Count 5.54 K/mm3 (4.00-11.30)
[2023-01-09 04:00] LABS: Bun/Creatinine Ratio 13.6 (12.0-20.0); Calcium, Blood 7.7 mg/dL (8.5-10.1); Creatinine, Blood 1.1 mg/dL (0.60-1.20); Potassium, Blood 3.8 mmol/L (3.5-5.5)
--- NOTE | 2023-01-09 06:13 | NUR ---
SHIFT SUMMARY PT REMAINS A&O X4. VSS; BP IMPROVING SBP 1 TEENS TO 130'S. PT HAD UNEVENTFUL NIGHT, NO ACUTE EVENTS. PT MEDICATED X2 PER EMAR FOR PAIN, OTHERWISE PT DID NOT C/O PAIN AND RESTED WELL. PT REPOSITIONED Q2 OR PRN, POSTERIOR PRECAUTIONS IN PLACE. PT NOW ON RA, TOLERATING WELL. SPO2 96-98%. PT TOLERATING PO INTAKE AND DRINKING LOTS OF WATER. ATTENDS IN PLACE AND MALE EXTERNAL WRAP; PT HAVING GOOD OUTPUT. CHANGED Q2 OR PRN. NO BM THIS SHIFT. CALL LIGHT IN REACH. WILL UPDATE COMING RN.
[2023-01-09 09:05] VITALS: BP 124/69
--- NOTE | 2023-01-09 10:45 | NUR ---
PT A&OX4, EXTREMELY HARD OF HEARING. GLASS R EYE. LUNG SOUNDS CLEAR/DIMINISHED, MAINTAINING 02 SATURATION ABOVE 93% ON RA, PT DENIES SOB. BP STABLE, HR 70'S TRIFASCULAR BLOCK, PT DENIES CHEST PAIN/PRESSURE. PT WEARING ATTENDS & CHANGED NEEDED. PT HAD RECENT R HIP SURGERY, PT STATED PAIN THIS MORNING, MEDICATED PER EMAR. IV IN L FOREARM PATENT, FLUSHED AND SALINE LOCKED. CURRENT PLAN IS FOR PT TO MOVE TO SURGICAL FLOOR. PT RESTING IN BED, CALL LIGHT WITHIN REACH.
[2023-01-09 11:07] VITALS: BP 135/69
[2023-01-09] MEDS ORDERED: MIDO5 PO (13:09)
[2023-01-09] MEDS ORDERED: FERSU300 PO (13:09)
[2023-01-09] MEDS ORDERED: SENN187 PO (13:09)
[2023-01-09 13:50] LABS: SARS-Cov-2 (COVID-19) PCR, MMC NEGATIVE (NEGATIVE)
[2023-01-09 14:59] VITALS: BP 122/76
--- NOTE | 2023-01-09 15:06 | NUR ---
PT WAS UP IN CHAIR FOR SEVERAL HOURS. HE WORKED WITH OCCUPATIONAL THERAPIST TODAY. HE HAS BACK IN BED RESTING. PT STATED HE CURRENTLY HAS NO PAIN IN HIS R HIP OR ANYWHERE ELSE. VITALS STABLE. LUIS CARE PERFORMED, BRIEF CHANGE, BARRIER CREAM APPLIED TO PENIS. CALL LIGHT WITHIN REACH. CUR[facility]OUND 1830.
--- NOTE | 2023-01-09 15:53 | NUR ---
PT DISCHARGED FROM FACILITY WITH ALL OF HIS BELONGINGS. PT STABLE UPON TRANSFER. [employer] [facility] PICKED UP PT AND TRANSPORTED HIM OUT OF FACILITY VIA WHEELCHAIR. D/C PACKET GIVEN TO PATRICIO MENDEZ. REPORT GIVEN TO [facility] NURSE.
== END 2023-01-09 15:50 | DRG 521 ==
LOC: ER 15:08 → PCU 20:43
PROVIDERS: Internal Medicine; Orthopaedic Surgery; Student in an Organized Health Care Education/Training Program; ADMIT Internal Medicine
PROC: 5A09357 Assistance with Respiratory Ventilation, Less than 24 Consecutive Hours, Continuous Positive Airway Pressure (ICD-10-PCS; 2023-01-03)
PROC: B24BZZZ Ultrasonography of Heart with Aorta (ICD-10-PCS; 2023-01-04)
PROC: 0SRR019 Replacement of Right Hip Joint, Femoral Surface with Metal Synthetic Substitute, Cemented, Open Approach (ICD-10-PCS; principal; 2023-01-05 12:30)
DX: S72.001A Fracture of unspecified part of neck of right femur, initial encounter for closed fracture (principal); J18.9 Pneumonia, unspecified organism; I50.22 Chronic systolic (congestive) heart failure; I13.0 Hypertensive heart and chronic kidney disease with heart failure and stage 1 through stage 4 chronic kidney disease, or unspecified chronic kidney disease; D62 Acute posthemorrhagic anemia; I45.3 Trifascicular block; N18.30 Chronic kidney disease, stage 3 unspecified; D50.9 Iron deficiency anemia, unspecified; Z66 Do not resuscitate; N40.0 Benign prostatic hyperplasia without lower urinary tract symptoms; M19.90 Unspecified osteoarthritis, unspecified site; G47.33 Obstructive sleep apnea (adult) (pediatric); I34.0 Nonrheumatic mitral (valve) insufficiency; I25.10 Atherosclerotic heart disease of native coronary artery without angina pectoris; K21.9 Gastro-esophageal reflux disease without esophagitis; W18.39XA Other fall on same level, initial encounter; Y92.121 Bathroom in nursing home as the place of occurrence of the external cause; I95.9 Hypotension, unspecified; Z95.1 Presence of aortocoronary bypass graft; Z95.5 Presence of coronary angioplasty implant and graft; Z87.891 Personal history of nicotine dependence; Z88.6 Allergy status to analgesic agent; Z97.0 Presence of artificial eye; Z11.52 Encounter for screening for COVID-19
CPT/HCPCS: 0241U; 36415; 70450; 71045; 72170; 73502; 80048; 80053; 82330; 82607; 82728; 82746; 83540; 83550; 83735; 84443; 84484; 85025; 85027; 93005; 93010; 93306; 94762; 96374; 96375; 96376; 97110; 97116; 97162; 97166; 97530; 97535; 99285-25; A9270; C1713; C1776; J0171; J0690; J0696; J0735; J0780; J1170; J2250; J2405; J2704; J2765; J2795; J3010; J7030; J7040; J7120; U0002

== ENCOUNTER 2023-01-11 22:18 | Emergency (ER) | payer MEDICARE, BC ==
[~2023-01-11] VITALS: Ht 177.8 cm; Wt 59.0 kg
[~2023-01-11 22:18] MED LIST changes: +FERSU300 PO; +Lisinopril2.5 MG PO; +MIDO5 PO; +SENN187 PO
== END 2023-01-12 05:25 ==
LOC: ER 22:18
DX: I46.9 Cardiac arrest, cause unspecified (principal); I10 Essential (primary) hypertension; Z95.5 Presence of coronary angioplasty implant and graft; Z79.899 Other long term (current) drug therapy; Z87.891 Personal history of nicotine dependence
CPT/HCPCS: 31500; 92950; 94002; 99285-25; J0171